=== PATIENT | female | born 1995 | race Caucasian/White ===

== ENCOUNTER 2023-08-09 15:37 | Emergency (ER) | payer OTHER, SELFPAY ==
[2023-08-09 15:40] VITALS: BP 126/92; PULSE 127; RESP 18; TEMP 36.6; O2SAT 97; BMI 20.7
--- NOTE | 2023-08-09 15:58 | EDS_ITS ---
HPI History of Present Illness Chief Complaint: General Illness Informant: patient and parent Narrative Narrative: Healthy 28-year-old female has been having low back pain for the past 3 days, she states it has been switching sides but now is just across her low back, as well as a right supraorbital/retro-orbital headache, some low-grade fevers and chills on occasion, and lower abdominal cramping off-and-on which was at its worst last night and then today was hurting her more periumbilical, but the abdominal discomfort when present has not been lateralizing. Normal for her clear mild vaginal discharge for a day or so which she states is typical for her when she ovulates, and her last normal menstrual cycle was about 2 weeks ago and she is usually regular. Not . Some nausea that correlates with when the back pain is worse, it has been somewhat colicky/off and on, no vomiting. No diarrhea or blood in the stool, normal bowel movements. Denies any urinary symptoms such as dysuria hematuria frequency urgency. Has never had a UTI before. Has never had the symptoms before. PFSH PFSH Medical History no medical history no medical history Allergy/AdvReac Type Severity Reaction Status Date / Time No Known Allergies Allergy Verified 08/09/23 15:40 Surgical History no surgical history no surgical history Social History Smoking Status: Never smoker ROS [facility] ED Constitutional Constitutional ED: Reports chills and fever(s) Eyes Eyes: Denies change in vision or diplopia ENT ENT ED: Denies rhinorrhea or sore throat Cardiovascular Cardiovascular: Denies chest pain or palpitations Respiratory/Chest Respiratory/Chest: Denies cough or dyspnea Gastrointestinal Gastrointestinal: Reports abdominal pain and nausea; Denies diarrhea, hematochezia, melena or vomiting Genitourinary Genitourinary ED: Reports LMP (females 10-50) Details: Comment: (2 wks ago); Denies dysuria, hematuria or urinary frequency Musculoskeletal Musculoskeletal: Reports back pain; Denies neck pain Integumentary Denies abscess or rash Neurologic Neurologic: Reports headache(s); Denies paresthesias or weakness Psychiatric Psychiatric: Denies anxiety or suicidal thoughts EXAM Physical Exam Const Vital Signs: 08/09/23 15:40 08/09/23 16:03 08/09/23 17:55 Temperature 97.9 F 99.1 F Temperature Source Temporal Oral Pulse Rate 127 H 89 Respiratory Rate 18 16 Respiratory Pattern Normal Blood Pressure 126/92 H 96/66 Blood Pressure Mean 103 76 Pulse Ox 97 96 Oxygen Delivery Method Room Air Room Air Positive well nourished and well developed General Appearance ED: well developed and NAD HEENT Reports moist mucous membranes normocephalic and atraumatic Eyes PERRL and EOMs intact bilaterally Neck full ROM and supple Resp normal respiratory effort and clear to auscultation bilaterally Cardio regular rate, regular rhythm and no murmurs GI non-distended GI Narrative: Minimal subjective tenderness just to the right of the pubic bone, right of suprapubic area, no tenderness to McBurney's point, no tenderness elsewhere, no guarding or rebound. Auscultation: normoactive bowel sounds Palpation: soft Back/Spine no CVA tenderness General Back: other FROM Extremity normal to inspection General Extremety ED: Negative for edema, pulses abnormal or tenderness General Extremity: Negative for edema or pulses abnormal Neuro oriented x3, CN's II-XII intact bilaterally and no sensory deficits noted Sensorium / Orientation: awake and alert Motor Exam: strength 5/5 throughout Psych mental status grossly normal Skin no rashes or lesions noted and no wounds MDM MDM MDM Narrative Medical decision making narrative: With the patient's symptoms, it seems her back discomfort is likely referred pain, with her abdominal pain being low it would more likely be referred from either the bladder or the uterus. She does not have urinary symptoms or any abnormal vaginal discharge, so I started with urinalysis because it was easier and quicker to obtain, it did not show infection, arguing against acute cystitis causing all of this. Therefore moving forward, ordered blood work and an ultrasound of the pelvis. test is negative. Less likely to be appendicitis although that is in the differential would be a very unusual case, she is tender nowhere near McBurney's point or any points higher than that, and the pain in her back is diffuse bilateral, making it sound like maybe this was some type of uterine or ovarian etiology for the infection. Mesenteric adenitis also in the differential diagnosis. I reviewed the lab work as well as the transvaginal ultrasound and the results which I agree with. Basically it is negative for any acute. It shows some small cysts on both ovaries and a small amount of free fluid that is consistent with ovulation, which the patient states she actually feels like she is having recently, so essentially I think this ultrasound is normal. In discussing this with the patient she states she has had some ovarian cysts in the past and knows what those feel like when they rupture, and this is all very different, reinforc ing my interpretation of this interpretation is basically normal for her. I have note, she has leukopenia with a predilection for monocytes in the differential, although with regards to the absolute monocyte count, she does not have a high number and it is inconsistent with the definition of a monocytosis at this point. Had she a monocytosis, there is a wide differential, including autoimmune problems, granulomatous disorders, rheumatologic disorders, vasculitis, myositis. She does not have any rashes or joint pains. This may be incidental, I recommend following up for repeating this at some point in the future. With regards to her abdominal pain, I do not have an answer yet but her vital signs are normal, her exam is benign, and in order to obtain an answer I did offer a CT of the abdomen/pelvis since she is here and we can easily obtain this to inquire further, but as I discussed with them, her low white blood count is extremely sensitive in context of these symptoms that are inconsistent with appendicitis for the most part on exam, and therefore I do not think she needs CT emergently in order to evaluate for appendicitis. They are in agreement understand all of this, and they declined the CT at this time and she prefers to wait it out taking Tylenol and ibuprofen for supportive care, advised she is welcome to return if worse but I recommend following up with her doctor. Patient does not have a PCP, lives in [place], her OB is here. Gave her the next doctor on the unassigned list, and if she chooses to follow-up in [place] and she is welcome to do that as well. History & Record Review Additional record(s) reviewed:: No prior records Lab Data Attestation: I reviewed the patient's lab results. Labs: Laboratory Results - last 24 hr 08/09/23 08/09/23 16:05 17:30 WBC 2.5 L RBC 3.97 L Hgb 12.5 Hct 37.4 MCV 94.2 MCH 31.5 MCHC 33.4 RDW Std Deviation 41.5 RDW Coeff of Saw 11.9 Plt Count 166 MPV 9.5 Immature Gran % (Auto) 0.400 Neut % (Auto) 61.4 Lymph % (Auto) 21.3 [place] % (Auto) 16.1 H Eos % (Auto) 0.0 Baso % (Auto) 0.8 Absolute Neuts (auto) 1.5 L Absolute Lymphs (auto) 0.53 L Nucleated RBC % 0 Differential Comment SEE COMMENT Diff Path Review May foll Atypical Lymphocytes RARE Platelet Estimate ADEQUATE RBC Morphology N CHROM Anisocytosis RARE Macrocytosis RARE Ovalocytes RARE Sodium 134 L Potassium 3.2 L Chloride 103 Carbon Dioxide 28.0 Anion Gap 3 L BUN 7 Creatinine 0.72 Estim Creat Clear Calc 101.35 Est GFR (MDRD) Af Amer 124 Est GFR (MDRD) Non-Af 103 BUN/Creatinine Ratio 9.7 L Glucose 84 Calcium 8.7 Urine Color Yellow Urine Clarity Sl. Cloudy Urine pH 6.0 Ur Specific [place] 1.015 Urine Protein 15 H Urine Glucose (UA) Normal Urine Ketones 50 H Urine Occult Blood 50 H Urine Nitrite Negative Urine Bilirubin Negative Urine Urobilinogen 1 H Ur Leukocyte Esterase Negative Urine RBC 0 SEEN Urine WBC 0 SEEN Ur Squamous Epith Cells 0-5 SEEN Urine Bacteria 0 SEEN Urine Mucus 1+ Urine Test Negative Radiography Diagnostic Testing: Clinical Impression(s) from Imaging Studies Transvaginal US 08/09/23 16:53 IMPRESSION: Small bilateral ovarian cysts with mild fluid in the cul-de-sac most likely due to recent ovulation. Electronically Signed: Arley Nguyen MD at 18:31 EDT Reading Location ID and State: [address] [place] [address] Tel , Service support , Discharge Plan Triage Chief Complaint: General Illness ED Provider: Soto Vazquez Dx/Rx/DC Orders Clinical Impression: Lower abdominal pain, Leukocytopenia, unspecified Instructions: ED Abdominal Pain Unkn Cause Fem Primary Care Provider: Care Physician,No Primary Referrals: Ovidio Gentile MD [Med Staff - Safety Equipment Testing Specialist] - Print Language: Gabonese Disposition Disposition: Home, Self Care
[2023-08-09 16:11] LABS: Bacteria 0 SEEN /hpf (None Seen); Red Blood Cells-Urine 0 SEEN /hpf (0-5); White Blood Cells 0 SEEN /hpf (0-5)
[2023-08-09 16:14] LABS: Color, Urine Yellow (Yellow); Glucose, Dipstick Normal (Normal); Ketone-Dipstick 50 mg/dl (Negative); Leukocyte Esterase-Dipstick Negative /ul (Negative); Nitrite-Dipstick Negative (Negative); Occult Blood-Urine 50 /ul (Negative); Protein-Dipstick 15 mg/dl (Negative); Specific Gravity, Urine 1.015 (1.002-1.030); Urine Bilirubin Dipstick Negative (Negative); Urine Clarity Sl. Cloudy (Clear); Urine Urobilinogen 1 mg/dl (Normal)
[2023-08-09 16:28] LABS: Internal QC Validated? YES +Cl - CLEAR BKGD; Pregnancy, Urine Negative Negative; Record Kit Lot#,Urine Preg 772476
--- NOTE | 2023-08-09 16:53 | US_ITS ---
STUDY: ULTRASOUND TRANSVAGINAL CLINICAL: Female, 28 years old. pain, fever TECHNIQUE: Transvaginal COMPARISON: None. FINDINGS: Normal uterine size measuring 8.5 x 6.1 x 4.8 cm in maximal craniocaudal dimension. There are no myometrial masses. Normal endometrial thickness measuring 4 mm. There are no endometrial masses, and there is no fluid in the endometrial cavity. Normal uterine cervix. Normal right ovary, measuring 4.7 x 4.4 x 2.6 cm. There is a cyst measuring 1.9 x 2.2 x 1.7 cm and 1.8 x 1.5 x 1.3 cm. Normal left ovary, measuring 3.6 x 2.4 x 1.9 cm. There are multiple follicles and a cyst measuring 1 x 0.7 x 0.7 cm. There is mild free fluid in the pelvis. US/Transvaginal Non- IMPRESSION: Small bilateral ovarian cysts with mild fluid in the cul-de-sac most likely due to recent ovulation. Electronically Signed: Arley Nguyen MD at 18:31 EDT ,
[2023-08-09 17:12] LABS: Mucous, Urine 1+ /hpf (<or=2+); Squamous Epithelial Cells - UA 0-5 SEEN /hpf (5-10)
[2023-08-09 17:48] LABS: Absolute Lymphocyte Count 0.53 X10^3/uL (0.83-4.51); Absolute Neutrophil Count 1.5 X10^3/uL (2.0-7.7); Basophil# 0.02 X10^3/uL; Basophil% 0.8 % (0-1); Hematocrit 37.4 % (37-47); Hemoglobin 12.5 g/dL (12.0-15.0); Lymphocyte # 0.53 X10^3/ul (0.83-4.51); Lymphocyte % 21.3 % (19-41); Mean Corp Hgb Conc 33.4 g/dL (32-36); Mean Corpuscular Hgb 31.5 pg (27.0-32.0); Mean Corpuscular Volume 94.2 fL (81-99); Mean Platelet Vol. 9.5 fl (6.2-12.0); Monocyte% 16.1 % (0-10); NRBC Flagged by Analyzer 0 % (0-5); Neutrophil # 1.53 X10^3/uL (2.7-7.7); Neutrophil % 61.4 % (47-70); POSITIVE DIFFERENTIAL YES; POSITIVE MORPHOLOGY YES; Platelet Count 166 K/mm3 (150-450); RBC Distribution Width CV 11.9 % (11.6-14.6); RBC Distribution Width SD 41.5 fl (35.1-43.9); Red Blood Count 3.97 M/mm3 (4.2-5.4); White Blood Count 2.5 K/mm3 (4.4-11.0)
[2023-08-09 17:49] LABS: Differential Indicated SCAN CRITERIA MET
[2023-08-09 17:55] VITALS: BP 96/66; PULSE 89; RESP 16; TEMP 37.3; O2SAT 96
[2023-08-09 18:03] LABS: Anion Gap 3 (5-15); BUN 7 mg/dL (7-18); BUN/Creat Ratio 9.7 RATIO (10-20); Calcium,Total 8.7 mg/dL (8.5-10.1); Chloride 103 mmol/L (98-107); Creatinine, Serum 0.72 mg/dL (0.55-1.02); EST Glomerular Filtration Rate 103 mL/min (>60); Est Glom Filt Rate - Afr Amer 124 mL/min (>60); Estimated Creatinine Clearance 101.35 ml/min; Glucose 84 mg/dL (74-106); Potassium 3.2 mmol/L (3.5-5.1); Sodium Level 134 mmol/L (136-145)
[2023-08-09 18:23] LABS: Anisocytosis RARE; Atypical Lymphocyte RARE %; Macrocytosis RARE; Ovalocyte RARE; Platelet Estimate ADEQUATE (ADEQ); Red Cell Morphology N CHROM NORMAL (NORM C&C)
[2023-08-09 18:59] VITALS: BP 99/66; PULSE 88; RESP 17; TEMP 37.3; O2SAT 99
[2023-08-10 14:04] LABS: Pathologist Review Reviewed
== END 2023-08-09 19:00 | disposition home or self-care (01) ==
PROVIDERS: Emergency Provider Emergency Medicine; Visit Provider Emergency Medicine
DX: R10.30 Lower abdominal pain, unspecified (principal); D72.819 Decreased white blood cell count, unspecified; M54.50 Low back pain, unspecified
CPT/HCPCS: 76830; 80048; 81001; 81025; 85025; 87491; 87591; 99283